=== PATIENT | male | born 1955 | race Caucasian/White ===

== ENCOUNTER → 2024-12-04 07:00 | Outpatient (REF) | payer MEDICARE, OTHER, SELFPAY | LOC: RCS 07:00 | PROVIDERS: ATTENDING PHYSICIAN Internal Medicine Cardiovascular Disease; FAMILY PHYSICIAN Internal Medicine | DX: I71.21 Aneurysm of the ascending aorta, without rupture (principal) | CPT/HCPCS: 93306 ==